=== PATIENT | female | born 1960 | race Caucasian/White ===

== ENCOUNTER 2018-12-09 16:29 | Emergency (ER) | payer OTHER, MEDICAID ==
[~2018-12-09] VITALS: Ht 154.9 cm; Wt 80.3 kg
[2018-12-09 16:35] VITALS: BP 127/67
--- NOTE | 2018-12-09 17:20 | NUR ---
CHARLOTTE GUERRERO FROM [facility] WITH C/O COUGH 15 MINUTES SEISMOGRAPH COMPUTER BY YOLANDA. PER TOM AT [facility] PT WAS FOUND ON A DIFFERENT SECTION OF THE BUILDING, UNABLE TO ANSWER QUESTIONS APPROPRIATELY, ALTERED MENTAL STATUS WITH SHAKINESS AND SWEATING. PER PT THAT SHE HAD A SEIZURE EPISODE WHILE SITTING DOWN ON THE CHAIR AT [facility]. PERLLA, BRISK 3 MM. EQUAL BILATERAL STRENGTH TO UPPER AND LOWER EXTREMITIES PT PLACED ON DIRECTOR OF PURCHASING. PLACED ON SEIZURE PRECAUTION, SEIZURE PADS UP. ON LOW BED POSITION LOCKED. HOB UP. BED SIDE RAILS UP X2. ER MADE AWARE OF PT STATUS. WILL CONTINUE OT MONITOR.
--- NOTE | 2018-12-09 18:20 | NUR ---
SPOKE TO PT'S SISTER, HORACIO DUCKWORTH (PODaja) [phone] AND CONFIRMED PT HAS A HX OF SEIZURE AND TAKES PHENOBARBITAL PRESCRIBED.
--- NOTE | 2018-12-09 18:26 | NUR ---
DR HANSEN AT BEDSIDE FOR PT EVALUATION
[2018-12-09] MEDS ORDERED: THO25 PO (18:57)
[2018-12-09] MEDS ORDERED: DOCU-299 PO (18:57)
[2018-12-09] MEDS ORDERED: [UNRECOGNIZED DRUG - CODE] PO (18:57)
[2018-12-09] MEDS ORDERED: PEP15L PO (18:57)
[2018-12-09] MEDS ORDERED: ALEN70TA9 PO (18:57)
[2018-12-09] MEDS ORDERED: FLUO20TA35 PO (18:57)
[2018-12-09 19:06] LABS: BASOPHILS % (AUTO) 0.6 % (0.0-2.0); EOSINOPHILS % (AUTO) 0.5 % (0.0-4.0); HEMATOCRIT 38.2 % (36-48); HEMOGLOBIN 12.9 g/dL (12.0-16.0); LYMPHOCYTES # (AUTO) 1.1 K/uL (2.5-16.5); LYMPHOCYTES % (AUTO) 16.4 % (20.5-51.1); MEAN CORPUSCULAR HEMOGLOBIN 32 pg (27-31); MEAN CORPUSCULAR HGB CONC 34 g/dL (33-37); MEAN CORPUSCULAR VOLUME 95.8 fL (80-94); MONOCYTES # (AUTO) 0.5 K/uL (0.8-1.0); NEUTROPHILS # (AUTO) 4.9 K/uL (1.8-7.7); NEUTROPHILS % (AUTO) 74.5 % (42.2-75.2); PLATELET COUNT (AUTO) 254 K/uL (140-450); RED BLOOD CELL COUNT(AUTO) 3.99 MIL/uL (4.20-5.40); RED CELL DISTRIBUTION WIDTH 12.9 % (11.6-13.7); WHITE BLOOD COUNT (AUTO) 6.6 K/uL (4.8-10.8)
[2018-12-09] MEDS ORDERED: SIMV40TA1 PO (19:11)
[2018-12-09] MEDS ORDERED: VITD400 PO (19:11)
[2018-12-09] MEDS ORDERED: TRAZ-344 PO (19:11)
[2018-12-09] MEDS ORDERED: PHEN-1438 PO (19:11)
[2018-12-09] MEDS ORDERED: DIT5 PO (19:11)
[2018-12-09] MEDS ORDERED: RISP0.5T3 PO (19:11)
[2018-12-09] MEDS ORDERED: CALC500T38 PO (19:11)
[2018-12-09] MEDS ORDERED: ICOS1SGL PO (19:11)
[2018-12-09] MEDS ORDERED: ASCO-786 PO (19:11)
[2018-12-09] MEDS ORDERED: OMEP20TC12 PO (19:11)
[2018-12-09] MEDS ORDERED: LAM200 PO (19:11)
[2018-12-09 19:15] LABS: ANION GAP 12.1 (8-16); CREATININE 0.8 mg/dL (0.6-1.3); POTASSIUM 4.1 mmol/L (3.5-5.1)
--- NOTE | 2018-12-09 19:15 | NUR ---
PT IS RESTING IN BED, SEIZURE PRECAUTIONS ARE IN PLACE, HOB ELEVATED, BED IN LOW POSITION, SIDERAILS X 2. WILL CONTINUE TO MONITOR.
--- NOTE | 2018-12-09 19:15 | NUR ---
PT LYING IN BED, PT STATED SHE HAS NO PAIN AT THIS TIME. COMFORT MEASURES OFFERED PT TOLERATED WELL.
[2018-12-09 19:16] LABS: APPEARANCE,URINE CLEAR (CLEAR); BILIRUBIN,URINE NEGATIVE (NEGATIVE); BLOOD, URINE NEGATIVE (NEGATIVE); COLOR,URINE YELLOW (YELLOW); LEUKOCYTE ESTERASE ,URINE NEGATIVE (NEGATIVE); NITRITE, URINE NEGATIVE (NEGATIVE); UGLUCOSE NEGATIVE (NEGATIVE)
--- NOTE | 2018-12-09 19:17 | NUR ---
Pt report given to JAYA Rausch and JAYA Clements. Transfer of care at this time.
--- NOTE | 2018-12-09 19:20 | NUR ---
PT TAKEN TO CT VIA [facility].
[2018-12-09 19:21] LABS: ALBUMIN 3.7 g/dL (3.4-5.0); TOTAL BILIRUBIN 0.2 mg/dL (0.0-1.0)
--- NOTE | 2018-12-09 21:13 | NUR ---
Note francis in ED - 12/09/18 at 2116 by [email or web address] SPOKE TO RAFAL, THE SITE CONTROLLER FROM THE [facility]. CONTACT INFO IS [phone]. WILL CONTACT HER PENDING DISCHARGE TO ARRANGE TRANSPORTATION.
--- NOTE | 2018-12-09 21:13 | NUR ---
SPOKE TO RAFAL, THE HEADING PINNER FROM THE [facility]. CONTACT INFO IS [phone]. WILL CONTACT HER PENDING DISCHARGE TO ARRANGE TRANSPORTATION.
--- NOTE | 2018-12-09 21:46 | NUR ---
PT LYING IN BED, COMFORT MEASURES OFFERED PT TOLERATED WELL.
--- NOTE | 2018-12-09 22:19 | NUR ---
Pt provided with sandwich meal. Pt eating and tolerating well.
--- NOTE | 2018-12-09 22:39 | NUR ---
PT AMBULATED TO THE RESTROOM WITH ASSISTANCE. PT TOLERATED WELL.
[2018-12-09] MEDS ORDERED: PHENobarbital 30 MG TAB PO ONE (23:10)
--- NOTE | 2018-12-09 23:18 | NUR ---
SPOKE TO RAFAL REGARDING TRANSPORTATION FOR PT DUE TO PENDING D/C. KEHINDE TO COMPOSITION MOLDER PT IN APPROX. 30 TO 40 MIN.
[2018-12-09 23:55] VITALS: BP 103/57
--- NOTE | 2018-12-09 23:55 | NUR ---
Patient discharged with v/s stable. Written and verbal after care instructions given and explained. Patient verbalized understanding. Ambulatory with assistance by walker to car, transported back to halfway. All questions addressed prior to discharge. Advised to follow up with PMD.
== END 2018-12-09 23:55 | disposition home or self-care (01) ==
LOC: MED 16:29
DX: G40.909 Epilepsy, unspecified, not intractable, without status epilepticus (principal); F79 Unspecified intellectual disabilities; Z79.899 Other long term (current) drug therapy
CPT/HCPCS: 36415; 70450; 80053; 80184; 81003; 83605; 85025; 87040; 87804; 99284

== ENCOUNTER 2019-08-08 09:24 | Emergency (ER) | payer OTHER, MEDICAID ==
[~2019-08-08] VITALS: Ht 154.9 cm; Wt 80.3 kg
[~2019-08-08 09:24] MED LIST: ALEN70TA9 PO; ASCO-786 PO; CALC500T38 PO; DIT5 PO; DOCU-299 PO; FLUO20TA35 PO; ICOS1SGL PO; LAM200 PO; OMEP20TC12 PO; PEP15L PO; PHEN-1438 PO; RISP0.5T3 PO; SIMV40TA1 PO; THO25 PO; TRAZ-344 PO; VITD400 PO; [UNRECOGNIZED DRUG - CODE] PO
[2019-08-08 09:32] VITALS: BP 131/75
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
--- NOTE | 2019-08-08 10:00 | NUR ---
PATIENT VSS, NO SEIZURE AT THIS TIME, AO4, DENIES PAIN. RESTING COMFORTABLY.
--- NOTE | 2019-08-08 10:13 | NUR ---
MED AT BEDSIDE.
--- NOTE | 2019-08-08 10:44 | NUR ---
PT STATED SHE IS UNABLE TO PROVIDE URINE AT THIS TIME.
--- NOTE | 2019-08-08 10:45 | NUR ---
lab at [facility] jorge ordered labs
--- NOTE | 2019-08-08 10:50 | NUR ---
PATIENT LEAVING FOR CT SCAN.
[2019-08-08 10:54] LABS: BASOPHILS % (AUTO) 0.2 % (0.0-2.0); EOSINOPHILS % (AUTO) 0.4 % (0.0-4.0); HEMATOCRIT 35.2 % (36-48); HEMOGLOBIN 11.7 g/dL (12.0-16.0); LYMPHOCYTES # (AUTO) 0.1 K/uL (2.5-16.5); LYMPHOCYTES % (AUTO) 1.9 % (20.5-51.1); MEAN CORPUSCULAR HEMOGLOBIN 33 pg (27-31); MEAN CORPUSCULAR HGB CONC 33 g/dL (33-37); MONOCYTES # (AUTO) 0.5 K/uL (0.8-1.0); NEUTROPHILS # (AUTO) 6.7 K/uL (1.8-7.7); NEUTROPHILS % (AUTO) 90.5 % (42.2-75.2); PLATELET COUNT (AUTO) 220 K/uL (140-450); RED BLOOD CELL COUNT(AUTO) 3.55 MIL/uL (4.20-5.40); RED CELL DISTRIBUTION WIDTH 12.7 % (11.6-13.7); WHITE BLOOD COUNT (AUTO) 7.4 K/uL (4.8-10.8)
[2019-08-08 10:58] LABS: CARBON DIOXIDE 27.6 mmol/L (21-32); CREATININE 0.8 mg/dL (0.6-1.3); POTASSIUM 3.6 mmol/L (3.5-5.1)
--- NOTE | 2019-08-08 11:18 | NUR ---
PATIENT RETURNED FROM CT. TOOK PATIENT TO THE RESTROOM, UNABLE TO COLLECT URINE SAMPLE, PATIENT WILL DRINK FLUIDS PROVIDED AND LET US KNOW WHEN SHE HAS TO URINATE.
--- NOTE | 2019-08-08 11:25 | NUR ---
EKG AT BEDSIDE
--- NOTE | 2019-08-08 11:26 | NUR ---
ASSUMED CARE OF PT FOR LUNCH RELIEF.
--- NOTE | 2019-08-08 11:26 | NUR ---
GAVE REPORT TO JAYA LAGUERRE
--- NOTE | 2019-08-08 12:06 | NUR ---
RECEIVED REPORT FROM SHADE CHARGE NURSE.
--- NOTE | 2019-08-08 12:06 | NUR ---
RETURNED REPORT TO JAYA BIRCH AND JAYA KAMINSKI FOR CONTINUATION OF CARE.
--- NOTE | 2019-08-08 12:09 | NUR ---
URINE SPECIMEN SENT TO LAB
[2019-08-08 12:35] LABS: APPEARANCE,URINE CLEAR (CLEAR); BILIRUBIN,URINE NEGATIVE (NEGATIVE); BLOOD, URINE NEGATIVE (NEGATIVE); COLOR,URINE YELLOW (YELLOW); LEUKOCYTE ESTERASE ,URINE NEGATIVE (NEGATIVE); NITRITE, URINE NEGATIVE (NEGATIVE); UGLUCOSE NEGATIVE (NEGATIVE)
--- NOTE | 2019-08-08 12:35 | NUR ---
PATIENT CAREGIVER AT BEDSIDE. PATIENT USING BED FOY TO URINATE.
--- NOTE | 2019-08-08 12:58 | NUR ---
PATIENTS LUNCH TRAY ARRIVED, PATIENT EATING WITH NO DIFFICULTIES. CAREGIVER AT BEDSIDE.
[2019-08-08] MEDS ORDERED: ONDANSETRON 4 MG/2 ML VIAL ONE (13:05)
--- NOTE | 2019-08-08 13:08 | NUR ---
PATIENT BEGAN VOMITING WHILE EATING, NOTIFIED MD. MANDO AGUAYO. PT GIVEN ZOFRAN 4MG. PT AO4, VSS STABLE.
[2019-08-08] MEDS ORDERED: ONDANSETRON 4 MG/2 ML VIAL IVP ONE (13:10)
--- NOTE | 2019-08-08 13:33 | NUR ---
PATIENT VSS STABLE, GAVE WATER TO DRINK, PT ABLE TO DRINK WITHOUT VOMITING, STATES NO NAUSEA.
--- NOTE | 2019-08-08 13:35 | NUR ---
Patient discharged with v/s stable. Written and verbal after care instructions given and explained. Patient verbalized understanding. Wheel Chair Assisted with to retirement. All questions addressed prior to discharge. Advised to follow up with PMD.
[2019-08-08 13:36] VITALS: BP 105/64
== END 2019-08-08 13:35 ==
LOC: MED 09:24
DX: R56.9 Unspecified convulsions (principal); F32.9 Major depressive disorder, single episode, unspecified; Z79.899 Other long term (current) drug therapy
CPT/HCPCS: 36415; 70450; 80048; 81003; 84484; 85025; 96374; 99284; J2405; 93005